=== PATIENT | female | born 1950 | race Asian ===

== ENCOUNTER 2020-01-09 00:07 | Emergency (ER) | payer OTHER ==
[~2020-01-09] VITALS: Ht 157.5 cm; Wt 54.0 kg
[2020-01-09 00:27] VITALS: Ht 157.5 cm; Wt 54.0 kg
[2020-01-09 02:58] VITALS: BP 132/43
== END 2020-01-09 02:58 | disposition home or self-care (01) ==
LOC: ED 00:07
DX: R04.0 Epistaxis (principal)

== ENCOUNTER 2020-01-10 01:16 | Emergency (ER) | payer OTHER ==
[~2020-01-10] VITALS: Ht 152.4 cm; Wt 54.0 kg
[2020-01-10 01:22] VITALS: Ht 152.4 cm; Wt 54.0 kg
[2020-01-10 02:59] VITALS: BP 106/43
== END 2020-01-10 02:43 | disposition home or self-care (01) ==
LOC: ED 01:16
DX: R04.0 Epistaxis (principal); I10 Essential (primary) hypertension; E11.9 Type 2 diabetes mellitus without complications